=== PATIENT | female | born 1970 | race Caucasian/White ===

== ENCOUNTER 2017-01-30 09:47 | Day surgery (SDC) | payer OTHER ==
[~2017-01-30] VITALS: Ht 165.1 cm; Wt 110.0 kg
[~2017-01-30 09:47] MED LIST: ACID CONTROL150 MG PO; PRAVACHOL20 MG PO; WOMEN'S 50 PLU1 EACH PO
[2017-01-30] MEDS ORDERED: BENADRYL50 MG PO (10:18)
[2017-01-30 10:29] VITALS: BP 133/93
[2017-01-30] MEDS ORDERED: ENDOCET 5-3251 EACH PO (12:27)
[2017-01-30 13:18] VITALS: BP 139/87
[2017-01-30 14:15] VITALS: BP 147/75
== END 2017-01-30 14:44 | disposition home or self-care (01) ==
LOC: SDC 09:47 → EDSTATUS 13:51 → 2SOUTH 13:51 → SDC 14:44
DX: Z01.419 Encounter for gynecological examination (general) (routine) without abnormal findings (principal); N92.0 Excessive and frequent menstruation with regular cycle; D17.23 Benign lipomatous neoplasm of skin and subcutaneous tissue of right leg; E66.01 Morbid (severe) obesity due to excess calories; Z68.41 Body mass index [BMI] 40.0-44.9, adult; K21.9 Gastro-esophageal reflux disease without esophagitis; E78.5 Hyperlipidemia, unspecified; R73.01 Impaired fasting glucose; Z98.51 Tubal ligation status; Z90.49 Acquired absence of other specified parts of digestive tract; Z80.0 Family history of malignant neoplasm of digestive organs; Z82.49 Family history of ischemic heart disease and other diseases of the circulatory system; Z83.3 Family history of diabetes mellitus; Z87.891 Personal history of nicotine dependence; Z88.0 Allergy status to penicillin; Z88.5 Allergy status to narcotic agent; Z91.040 Latex allergy status
CPT/HCPCS: 87624; 88175 90; 88304; 88305; J1885; J2250; J2405; J3010; Q0175; S0020